=== PATIENT | male | born 1995 | race Caucasian/White ===

== ENCOUNTER 2019-12-10 18:47 | Emergency (ER) | payer BC ==
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
[2019-12-10 20:24] LABS: ACETAMINOPHEN < 2 ug/mL (<2)
[2019-12-10 23:29] VITALS: BP 156/95; PULSE 74
== END 2019-12-11 00:01 ==
LOC: FB.ED 18:47
DX: F19.10 Other psychoactive substance abuse, uncomplicated (principal); F43.23 Adjustment disorder with mixed anxiety and depressed mood; R45.851 Suicidal ideations; F32.9 Major depressive disorder, single episode, unspecified; Z86.73 Personal history of transient ischemic attack (TIA), and cerebral infarction without residual deficits; Z79.899 Other long term (current) drug therapy
CPT/HCPCS: 36415; 80053; 80305-QW; 84443; 85025; 99285; G0480

== ENCOUNTER 2020-03-28 12:41 | Emergency (ER) | payer BC, MEDICAID ==
[2020-03-28] MEDS ORDERED: Sodium Chloride 0.9% 10 ML Syringe FLUSH PRN (13:02)
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
[2020-03-28 13:27] VITALS: BP 127/67; PULSE 73
[2020-03-28] MEDS ORDERED: Iopamidol 755 Mg/ML 100 ML Bottle IV ONE (14:16)
== END 2020-03-28 15:45 | disposition home or self-care (01) ==
LOC: FB.ED 12:41
DX: K52.9 Noninfective gastroenteritis and colitis, unspecified (principal); F17.210 Nicotine dependence, cigarettes, uncomplicated; F31.9 Bipolar disorder, unspecified; F41.9 Anxiety disorder, unspecified; Z79.899 Other long term (current) drug therapy
CPT/HCPCS: 36415; 74177; 80053; 81001; 85025; 87045; 87046; 87230; 87427; 99284; Q9967

== ENCOUNTER 2020-07-07 21:21 | Emergency (ER) | payer BC, MEDICAID ==
[2020-07-07] MEDS ORDERED: Sodium Chloride 0.9% 10 ML Syringe FLUSH PRN (21:28)
[2020-07-07] MEDS ORDERED: Thiamine 100 MG in Sodium Chloride 0.9% 100 ML IV ONE ×2 (21:31→21:35)
[2020-07-07] MEDS ORDERED: Naloxone 0.4 MG/ML SDV IVPUSH STA (21:39)
[2020-07-07] MEDS ORDERED: Naloxone 0.4 MG/ML SDV ONE (21:40)
[2020-07-07] MEDS ORDERED: Sodium Chloride 0.9% 1,000 ML IV SCH (21:45)
[2020-07-07 21:51] LABS: ACETAMINOPHEN < 2 ug/mL (<2)
[2020-07-07] MEDS ORDERED: Ondansetron 4 MG/2 ML SDV IVPUSH ONE (22:28)
[2020-07-07] MEDS ORDERED: NS + KCl 20mEq/L 2,000 ML IV SCH (22:30)
[2020-07-07] MEDS ORDERED: NS + KCl 20mEq/L 1,000 ML ONE (22:31)
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
[2020-07-08] MEDS ORDERED: Potassium Chloride 20 MEQ Tab.ER PO ONE (00:09)
[2020-07-08 00:39] VITALS: PULSE 78
[2020-07-08] MEDS ORDERED: NS + KCl 20mEq/L 1,000 ML IV SCH (02:35)
[2020-07-08] MEDS ORDERED: Potassium Chloride 20 MEQ Tab.ER ONE (03:33)
== END 2020-07-08 03:35 | disposition home or self-care (01) ==
LOC: FB.ED 21:21
DX: F10.129 Alcohol abuse with intoxication, unspecified (principal); F19.10 Other psychoactive substance abuse, uncomplicated; F41.9 Anxiety disorder, unspecified; F31.9 Bipolar disorder, unspecified; Z90.49 Acquired absence of other specified parts of digestive tract; Z79.899 Other long term (current) drug therapy
CPT/HCPCS: 36415; 70450; 71045; 80053; 80305; 80307; 82150; 83690; 85025; 93005; 96361; 96365; 96375; 99284; A9270; J2310; J2405; J3411; J3480; J7030; J7050